=== PATIENT | female | born 2000 | race Two or more races ===

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

== ENCOUNTER → 2019-03-10 | Outpatient (CLI) | payer BC ==
[~2019-03-10] MED LIST: AMIT8CAP4 PO; FLUO20CA8 PO; HYDR50TA70 PO; MEDR1VL IM; MIRA33504 PO; PROT1TAB2 PO; ZOFR4TAB14 PO
[2019-03-10 13:59] LABS: HEMATOCRIT 38.7 % (36.0-47.0); HEMOGLOBIN 12.8 g/dl (12.0-15.5); MEAN CORPUSCULAR HEMOGLOBIN 28.9 pg (27.0-33.0); MEAN CORPUSCULAR HGB CONC 33.1 g/dl (32.0-36.5); MEAN CORPUSCULAR VOLUME 87.4 fl (80.0-96.0); PLATELET COUNT, AUTOMATED 271 10^3/uL (150-450); RED BLOOD COUNT 4.43 10^6/uL (4.00-5.40)
[2019-03-10 14:39] LABS: FREE T4 0.99 NG/DL (0.78-1.33); THYROID STIMULATING HORMONE 2.01 uIU/ML (0.463-3.98)
[2019-03-16 00:14] LABS: 17 HYDROXY PROGESTERONE 22 ng/dL (.); DEHYDROEPIANDROSTERONE SULFATE 146.4 ug/dL (110.0-431.7); INSULIN FREE 8.7 uU/mL (.); INSULIN TOTAL2 10 uU/mL (.); TESTOSTERONE FREE (DIRECT) 0.3 pg/mL (0.0-4.2)
== END ==
LOC: M LAB 13:31
PROVIDERS: ATTEND Advanced Practice Midwife
DX: N92.6 Irregular menstruation, unspecified (principal)

== ENCOUNTER → 2019-03-24 | Outpatient (CLI) | payer BC | LOC: M LAB 15:21 | PROVIDERS: ATTEND Advanced Practice Midwife | DX: N92.6 Irregular menstruation, unspecified (principal) ==

== ENCOUNTER 2019-06-03 10:08 | Emergency (ER) | payer BC ==
[~2019-06-03] VITALS: Ht 175.3 cm; Wt 63.2 kg
[2019-06-03] MEDS ORDERED: multivit (10:15)
[2019-06-03 11:25] LABS: BASO # 0.1 10^3/uL (0.0-0.2); BASO % 0.6 % (0.0-1.0); EOS % 0.3 % (0.0-3.0); HEMATOCRIT 37.2 % (36.0-47.0); HEMOGLOBIN 12.4 g/dl (12.0-15.5); LYMPH # 1.7 10^3/uL (1.5-6.5); LYMPH % 18.8 % (24.0-44.0); MEAN CORPUSCULAR HEMOGLOBIN 28.4 pg (27.0-33.0); MEAN CORPUSCULAR HGB CONC 33.3 g/dl (32.0-36.5); MEAN CORPUSCULAR VOLUME 85.1 fl (80.0-96.0); MONO # 0.6 10^3/uL (0.0-0.8); MONO % 6.8 % (0.0-5.0); NEUTROPHILS # 6.4 10^3/uL (1.8-7.7); PLATELET COUNT, AUTOMATED 263 10^3/uL (150-450); RED BLOOD COUNT 4.37 10^6/uL (4.00-5.40); WHITE BLOOD COUNT 8.8 10^3/uL (4.0-10.0)
[2019-06-03 11:58] LABS: ALT/SGPT 57 U/L (12-78); BILIRUBIN,DIRECT 0.2 MG/DL (0.0-0.2); BILIRUBIN,TOTAL 0.5 MG/DL (0.2-1.0); BLOOD UREA NITROGEN 10 MG/DL (7-18); CARBON DIOXIDE LEVEL 27 MEQ/L (21-32); CHLORIDE LEVEL 105 MEQ/L (98-107); CREATININE FOR GFR 0.54 MG/DL (0.55-1.30); GLUCOSE, FASTING 78 MG/DL (70-100); LIPASE 76 U/L (73-393); POTASSIUM SERUM 3.8 MEQ/L (3.5-5.1); SODIUM LEVEL 138 MEQ/L (136-145); TOTAL PROTEIN 7.3 GM/DL (6.4-8.2)
[2019-06-03] MEDS ORDERED: NS 1,000 ML IV ONE (13:00)
[2019-06-03] MEDS ORDERED: ONDANSETRON 4MG/2ML VIAL (J2405) IV ONE (13:00)
[2019-06-03] MEDS ORDERED: ONDA8TAB8 PO (14:38)
[2019-06-03 14:43] VITALS: BP 103/54
== END 2019-06-03 14:48 | disposition home or self-care (01) ==
LOC: M ED 10:08
DX: E86.0 Dehydration (principal); O99.511 Diseases of the respiratory system complicating pregnancy, first trimester; J45.909 Unspecified asthma, uncomplicated; Z3A.08 8 weeks gestation of pregnancy
CPT/HCPCS: 80048; 80076; 81001; 83690; 84702; 85025; 87086; 96361; 96374; 99284; J2405

== ENCOUNTER → 2019-06-14 | Outpatient (CLI) | payer BC ==
[~2019-06-14] MED LIST changes: +FLUO20CA20 PO; -FLUO20CA8 PO; +ONDA8TAB8 PO; +multivit
[2019-06-14 17:27] LABS: BASO % 0.4 % (0.0-1.0); EOS # 0.1 10^3/uL (0.0-0.50); EOS % 0.6 % (0.0-3.0); HEMATOCRIT 32.6 % (36.0-47.0); HEMOGLOBIN 11.2 g/dl (12.0-15.5); LYMPH # 2.1 10^3/uL (1.5-6.5); LYMPH % 19.1 % (24.0-44.0); MEAN CORPUSCULAR HEMOGLOBIN 28.9 pg (27.0-33.0); MEAN CORPUSCULAR HGB CONC 34.4 g/dl (32.0-36.5); MONO # 0.8 10^3/uL (0.0-0.8); MONO % 7.7 % (0.0-5.0); NEUTROPHILS # 7.8 10^3/uL (1.8-7.7); NEUTROPHILS % 71.8 % (36.0-66.0); PLATELET COUNT, AUTOMATED 259 10^3/uL (150-450); RED BLOOD COUNT 3.88 10^6/uL (4.00-5.40); WHITE BLOOD COUNT 10.8 10^3/uL (4.0-10.0)
[2019-06-14 20:28] LABS: HIV 1&2 SCREEN CENTAUR NEGATIVE (NEGATIVE); RUBELLA IgG QUALITATIVE IMMUNE (IMMUNE)
[2019-06-19 13:52] LABS: HEPATITIS C VIRUS ABY INDEX < 0.0 INDEX (<0.8)
== END ==
LOC: M LAB 16:37
PROVIDERS: ATTEND Advanced Practice Midwife
DX: Z34.81 Encounter for supervision of other normal pregnancy, first trimester (principal); Z3A.00 Weeks of gestation of pregnancy not specified

== ENCOUNTER → 2019-06-20 | Outpatient (REF) | payer BC ==
[2019-06-20 12:53] LABS: CHLAMYDIA DNA AMPLIFICATION NEGATIVE (NEGATIVE); GC DNA AMPLIFICATION NEGATIVE (NEGATIVE)
== END ==
LOC: M LAB REF 10:42
PROVIDERS: ATTEND Advanced Practice Midwife
DX: Z34.81 Encounter for supervision of other normal pregnancy, first trimester (principal)

== ENCOUNTER → 2019-08-07 | Outpatient (REF) | payer BC ==
[~2019-08-07] MED LIST changes: -FLUO20CA20 PO; +FLUO20CA8 PO
== END ==
LOC: M LAB REF 17:06
PROVIDERS: ATTEND Advanced Practice Midwife
DX: Z34.82 Encounter for supervision of other normal pregnancy, second trimester (principal)

== ENCOUNTER → 2019-08-16 | Outpatient (CLI) | payer BC ==
--- NOTE | 2019-08-16 10:45 | REP ---
Clinical: Anatomical evaluation. Comparison: None . Findings: Examination demonstrates a single live intrauterine in cephalic presentation. motion is identified by technologist. Placenta is noted anterior and grade zero without evidence for placenta previa or abruption. Amniotic fluid volume is normal. Cervix measures 3.3 cm in length and appears closed. Nuchal cord cannot be excluded. Gestational age by LMP 18 weeks 5 days with LEWIS 06/13/2020 . Gestational age by current measurements 19 weeks 0 days with LEWIS 01/10/2020 . FHR equals 144 beats per minute. BPD 4.5 cm 19 weeks 4 days HC 16.3 cm 19 weeks 1 days AC 13.2 cm 18 weeks 5 days FL 2.9 cm 18 weeks 6 days HL 2.8 cm 19 weeks 0 days HC/AC ratio 1.24 Estimated weight 260 grams ( 52nd percentile). Anatomical assessment demonstrates normal structures including cranium, choroid plexus, cavum, cerebellum/posterior fossa, lungs, four-chamber heart/ventricular outflow tracts, diaphragm, stomach, cord insertion/three-vessel cord, kidneys/bladder, and extremities. Impression: 1. Single live intrauterine in cephalic presentation demonstrating appropriate interval growth. 2. Nuchal cord cannot be excluded. 3. Limited evaluation of the facial features and spine noted. Remainder of the anatomical assessment is complete and normal. Electronically Signed by Rito Mata MD 08/16/2019 10:37 A
== END ==
LOC: M RAD 09:27
PROVIDERS: ATTEND Advanced Practice Midwife
DX: Z34.02 Encounter for supervision of normal first pregnancy, second trimester (principal)

== ENCOUNTER → 2019-09-10 | Outpatient (CLI) | payer BC ==
--- NOTE | 2019-09-10 20:46 | REP ---
OB ULTRASOUND: Real-time sonographic evaluation of the gravid uterus is performed. There is a single living intrauterine gestation, estimated gestational age 22 weeks 2 days, EDC 01/12/2020. Today's measurements indicate appropriate growth. BPD 56 mm = 23 weeks 2 days, 75th percentile HC 210 mm = 23 weeks 1 day, 74th percentile AC 185 mm = 23 weeks 2 days, 72nd percentile FL 38 mm = 22 weeks 1 day, 45th percentile HC/AC ratio 1.14, within normal range. Estimated weight 539 grams, 63rd percentile. Cervix is closed and measures 5.1 cm in length. heart rate 136 beats per minute. Visualized anatomy today includes upper lip and spine which are grossly unremarkable. position breech. Placenta is anterior and grade 0 with no previa or abruption. Amniotic fluid within normal limits. Electronically Signed by Rustam Landeros MD 09/11/2019 10:07 A
== END ==
LOC: M RAD 17:29
PROVIDERS: ATTEND Advanced Practice Midwife
DX: Z34.82 Encounter for supervision of other normal pregnancy, second trimester (principal); Z3A.22 22 weeks gestation of pregnancy

== ENCOUNTER → 2019-10-24 | Outpatient (CLI) | payer BC ==
[~2019-10-24] MED LIST changes: +FLUO20CA20 PO; -FLUO20CA8 PO
[2019-10-24 17:15] LABS: HEMATOCRIT 33.5 % (36.0-47.0); HEMOGLOBIN 10.7 g/dl (12.0-15.5); MEAN CORPUSCULAR HEMOGLOBIN 28.8 pg (27.0-33.0); MEAN CORPUSCULAR HGB CONC 31.9 g/dl (32.0-36.5); MEAN CORPUSCULAR VOLUME 90.1 fl (80.0-96.0); PLATELET COUNT, AUTOMATED 264 10^3/uL (150-450); RED BLOOD COUNT 3.72 10^6/uL (4.00-5.40); WHITE BLOOD COUNT 10.5 10^3/uL (4.0-10.0)
== END ==
LOC: M PLALAB 11:20
PROVIDERS: ATTEND Advanced Practice Midwife
DX: Z36.89 Encounter for other specified antenatal screening (principal)

== ENCOUNTER → 2019-12-16 | Outpatient (REF) | payer BC | LOC: M SFHCWAGY 13:18 | PROVIDERS: ATTEND Obstetrics & Gynecology | DX: Z36.85 Encounter for antenatal screening for Streptococcus B (principal) ==

== ENCOUNTER 2019-12-27 17:45 | Outpatient (CLI) | payer BC ==
[~2019-12-27] VITALS: Ht 172.7 cm; Wt 80.5 kg
[2019-12-27 18:05] VITALS: BP 122/61
[2019-12-27] MEDS ORDERED: OMEP40CA97 PO (18:18)
[2019-12-27] MEDS ORDERED: PREN29TA4 PO (18:18)
--- NOTE | 2019-12-27 19:48 | IPN ---
DATE: 12/27/2019 SUBJECTIVE: Oleksandr is a 19-year-old 1, para 0. She is at 37-5/7 weeks gestation, estimated date of confinement (EDC) of 01/12/2020 based on last menstrual period and confirmed by first trimester ultrasound, presents to labor and delivery today with report of some contractions as well as decreased movement. She denies vaginal bleeding and leakage of fluid. The fetus has begun moving upon application of external monitors. care was initiated at [facility] in the first trimester. Her course complicated by a history of attention-deficit hyperactivity disorder (ADHD), anxiety. OBSTETRIC HISTORY: Primigravida. OBSTETRIC LABS: A+, antibody screen negative, rubella immune, VDRL nonreactive. Urine culture no growth. HIV negative. Hepatitis B surface antigen negative. Hepatitis C antibody negative. Gonorrhea and chlamydia negative. She declined genetic serum screening labs. Gestational diabetic screening normal at 75 and her GBS is negative. PAST MEDICAL HISTORY: Anxiety. Depression. Asthma. SURGERIES: Cholecystectomy. FAMILY HISTORY: Diabetes, hypertension, seizures, depression. SOCIAL HISTORY: The patient is single; however, her partner is at bedside and supportive. She is a nonsmoker. She denies alcohol and drug use. There is no history of any sexually transmitted infections, and she denies history of abuse - physical, sexual and emotional. ALLERGIES: No known drug allergies. CURRENT MEDICATIONS: - omeprazole 20 mg as well as a vitamin OBJECTIVE: Blood pressure is 122/61, pulse 76. She is alert and oriented times three. She is smiling and talkative. She is in no apparent distress. heart rate is 130 with moderate variability, positive accelerations, no decelerations. Contractions palpate mild; they are every 2-4 minutes. Sterile vaginal exam: Fingertip, thick, posterior, soft. No show with exam. ASSESSMENT: Intrauterine at 37-5/7. heart rate is category 1, not in labor. PLAN: Discharge the patient home. She is to keep her next care visit. I did review discharge instructions that include signs and symptoms of active labor, movement counts, danger signs to report and access to her care provider. The patient and her partner had all of their questions answered and desire to be discharged.
== END 2019-12-27 18:53 | disposition home or self-care (01) ==
LOC: M LDO 17:45
PROVIDERS: ATTEND Advanced Practice Midwife
DX: O36.8130 Decreased fetal movements, third trimester, not applicable or unspecified (principal); Z3A.37 37 weeks gestation of pregnancy
CPT/HCPCS: 59025; G0378; G0463

== ENCOUNTER 2020-01-09 12:57 | Inpatient (IN) | payer BC ==
[~2020-01-09] VITALS: Ht 172.7 cm; Wt 81.6 kg
[2020-01-09] VITALS (7 sets, daily range): BP systolic 111–137; BP diastolic 59–83
[~2020-01-09 12:57] MED LIST changes: +OMEP40CA97 PO; +PREN29TA4 PO
[2020-01-09] MEDS ORDERED: BUTORPHANOL 2 MG/ML INJ (J0595) IV ONE ×2 (13:45→20:00)
[2020-01-09 13:59] LABS: HEMATOCRIT 29.4 % (36.0-47.0); HEMOGLOBIN 9.4 g/dl (12.0-15.5); MEAN CORPUSCULAR HEMOGLOBIN 26.1 pg (27.0-33.0); MEAN CORPUSCULAR VOLUME 81.7 fl (80.0-96.0); PLATELET COUNT, AUTOMATED 360 10^3/uL (150-450); WHITE BLOOD COUNT 14.1 10^3/uL (4.0-10.0)
[2020-01-09] MEDS: PROMETHAZINE INJ 25 MG/ML VIAL (J2550) IV PRN ×2 (14:08→20:07)
[2020-01-09] MEDS ORDERED: LR 1,000 ML IV SCH (20:26)
[2020-01-09] MEDS ORDERED: OXYTOCIN DRIP 30 UNITS in IV 1 EA IV SCH (20:30)
--- NOTE | 2020-01-09 21:16 | HPEPDOC ---
Obstetrical History & Physical General Date of Admission Jan 09, 2020 at 12:57 History of Present Illness 19-year-old 1 at 39 weeks and 4 days by last confirmatory first trimester ultrasound, here for complaints of contractions Chief Complaint: Contractions, term Information Provided By: Patient Age: 19 : 1 Care Care: Good Care Dating Final EDC: Jan 12, 2020 Final EDC by: LMP EGA at Admission: 39 Past Medical History Past Obstetrical History : Past Obstetrical History: Primgravida Past Medical History Surgical History: Gallbladder, Upper endoscopy Social History Marital Status: Psychosocial History: Anxiety, Depression Allergies Coded Allergies: No Known Allergies (Unverified , 06/03/19) Medications Scheduled Omeprazole (Omeprazole) 40 Mg Capsule.dr, 40 MG PO DAILY Prenat 115/Iron Fum/Folic/Dss ( 19 Tablet) 1 Each Tablet, 1 TAB PO DAILY Physical Examination Physical Examination GENERAL: Alert and oriented times three. BREAST: . ABDOMEN: Gravid and non-tender to touch. FETUS: Is vertex (VTX) by sterile vaginal examination (SVE), fetus is vertex (VTX) by Ayo. HEART RATE: Regular rate and rhythm. LUNGS: Clear to auscultation (CTA). Vital Signs/I&O Vital Signs Date Time Temp Pulse Resp B/P (MAP) Pulse Ox O2 Delivery O2 Flow Rate FiO2 01/09/20 20:00 20 01/09/20 16:22 98.4 62 111/62 (78) Laboratory Data [facility]S Laboratory Tests 2 01/09/20 13:09: Serology Scanned Report Hepatitis B Testing 01/09/20 13:43: Nucleated Red Blood Cells % (auto) 0.0 CBC/BMP Laboratory Tests 01/09/20 13:43 Pertinent Laboratoy Data Blood Type: A+ RBC Antibody Screen: Negative HIV: Negative Hepatitis B: Negative Hepatitis C: Negative Rapid Plasma Reagin: Nonreactive Rubella: Immune Chlamydia/Gonorrhea: Negative Group B Streptococcus: Negative Vaginal Examination Dilation: 3 cm Effacement: 70% Assessment Variability: Moderate Tocometer Contractions: Yes Frequency: every 2-5 min. Assessment/Plan Assessment 19-year-old 1 at 39 weeks 4 days estimate gestational age here in active labor. Reassuring status Plan Admit and orient. Judicial Administrative Assistant and consent. Diet: Regular. Group B Streptococcus (GBS) negative. Labs and intravenous (IV) per unit protocol. Counseled on Pitocin and induction of labor (IOL). Anticipate normal spontaneous delivery (). C-S as appropriate. CORY AVILA MD. Jan 09, 2020 21:16
[2020-01-10] VITALS (8 sets, daily range): BP systolic 114–127; BP diastolic 55–65
[2020-01-10] MEDS ORDERED: OXYTOCIN DRIP 30 UNITS in IV 1 EA IV SCH (01:03)
--- NOTE | 2020-01-10 01:07 | DNPDOC ---
[facility] Delivery Note Delivery Note DATE OF DELIVERY: 01/10/2020 TIME OF : 0046 GENDER: Male. APGARS: 8 and 9. WEIGHT: 3410 grams or 7 pounds 8 ounces. LACERATIONS: None ANESTHESIA:. None. COUNTS: 5 laparotomy sponges accounted for prior to after delivery. DELIVERY NOTE: On 01/10/2020 at 00 46, this patient, 1, now para 1, had a spontaneous vaginal delivery of viable male infant, Apgars 8 and 9. Weight was 3410 g or 7 lbs. 8 oz. Head was delivered [occiput anterior (OA). Nuchal cord was manually reduced followed by delivery of the shoulders and corpus. Infant was handed to mom with a good cry. Cord was clamped times two and was cut by the father of baby under my direction. Placenta was then drained and delivered grossly intact. A premixed bag of 500 mL of normal saline with 30 units of Pitocin was then bolused along with uterine massage until the uterus was firm. On inspection, cervix, vagina, perineum was grossly intact and hemostatic. Mom and baby in recovery on stable condition. The couple has decided to maintain the son, Quintin. CORY AVILA MD. Jan 10, 2020 01:07
[2020-01-10] MEDS ORDERED: IBUPROFEN 600 MG TAB PO PRN (01:15)
[2020-01-10] MEDS ORDERED: RHOGAM 300 MCG (1500 IU) INJ (J2790) IM SCH (01:15)
[2020-01-10] MEDS ORDERED: ANUSOL HC CREAM 30GM TOP PRN (01:15)
[2020-01-10] MEDS ORDERED: ACETAMINOPHEN TAB 650MG DOSE (2X325MG) PO PRN (01:15)
[2020-01-10] MEDS ORDERED: METHYLERGONOVINE MALEATE 0.2 MG TAB PO PRN (01:15)
[2020-01-10] MEDS ORDERED: DOCUSATE SODIUM 100 MG CAP PO PRN (01:15)
[2020-01-10] MEDS ORDERED: MEASLES,MUMPS,RUBELLA VACCINE INJ (MMR-II) (90707) SC SCH (01:15)
[2020-01-10] MEDS ORDERED: MOM 30ML SUSPENSION UDC PO PRN (01:15)
[2020-01-10] MEDS ORDERED: DIBUCAINE 1% OINTMENT 30GM TOP PRN (01:15)
[2020-01-10] MEDS: IBUPROFEN 800 MG TAB PO PRN ×3 (01:25→22:18)
[2020-01-10] MEDS: ACETAMINOPHEN 500 MG TAB PO PRN ×2 (07:53→18:00)
[2020-01-10] MEDS: PRENATAL VITAMINS CHEWABLE TABLET PO SCH (08:58)
[2020-01-10] MEDS ORDERED: ADACEL/BOOSTRIX VACCINE (DIPHTH/PERTUSS/ACELL/TETANUS)0.5ML SYR (90715) IM ONE (09:00)
[2020-01-11] MEDS: ACETAMINOPHEN 500 MG TAB PO PRN (00:15)
[2020-01-11] MEDS: IBUPROFEN 800 MG TAB PO PRN (06:04)
[2020-01-11 06:17] VITALS: BP 115/59
[2020-01-11] MEDS: PRENATAL VITAMINS CHEWABLE TABLET PO SCH (08:25)
[2020-01-11] MEDS ORDERED: ACET-683 PO (11:02)
[2020-01-11] MEDS ORDERED: IBUP80TA PO (11:02)
== END 2020-01-11 14:09 | disposition home or self-care (01) | DRG 560 ==
LOC: M LDI 12:57 → M OBS 01-10 02:30
PROVIDERS: ADMIT Obstetrics & Gynecology; ATTEND Obstetrics & Gynecology
PROC: 10E0XZZ Delivery of Products of Conception, External Approach (ICD-10-PCS; principal; 2020-01-10)
DX: O69.81X0 Labor and delivery complicated by cord around neck, without compression, not applicable or unspecified (principal); Z37.0 Single live birth; Z3A.39 39 weeks gestation of pregnancy